=== PATIENT | female | born 1960 | race Caucasian/White ===

== ENCOUNTER 2022-10-21 13:34 | Emergency (ER) | payer OTHER, SELFPAY ==
[2022-10-21 13:41] VITALS: BP 151/86; PULSE 94; RESP 18; TEMP 37.6; O2SAT 98
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
[2022-10-21] MEDS: TETANUS,DIPHTHERIA,AC PERTUSSIS ADULT (0.5 ML) BOOSTRIX IM (14:11)
== END 2022-10-21 14:31 | disposition home or self-care (01) ==
PROVIDERS: Emergency Provider Nurse Practitioner Family
DX: S51.012A Laceration without foreign body of left elbow, initial encounter (principal); V48.5XXA Car driver injured in noncollision transport accident in traffic accident, initial encounter; Z23 Encounter for immunization; E78.00 Pure hypercholesterolemia, unspecified; I10 Essential (primary) hypertension; M81.0 Age-related osteoporosis without current pathological fracture
CPT/HCPCS: 12001; 90471; 90715; 99202; G0463